=== PATIENT | male | born 2000 | race Caucasian/White ===

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

== ENCOUNTER 2020-01-03 08:55 | Day surgery (SDC) | payer OTHER ==
[2020-01-03 10:01] VITALS: RESP 16; TEMP 98.4
--- NOTE | 2020-01-03 11:19 | P.OP ---
Date of Procedure: 01/03/20 Preoperative Diagnosis: proteinuria Procedure(s) Performed: CT guided left renal parenchymal biopsy Anesthesia: local Surgeon: Judith Valenzuela Estimated Blood Loss (ml): 7 Pathology: other (4 18G cores) Condition: stable Disposition: observation (will observe for 4 hrs prior to discharge)
[2020-01-03 15:12] VITALS: BP 113/55; PULSE 85
--- NOTE | 2020-01-03 15:15 | CT ---
EXAMINATION TYPE: CT biopsy renal LT DATE OF EXAM: 01/03/2020 HISTORY: Proteinuria COMPARISON: None SAFE DEPOSIT ATTENDANT: Dr. Judith Valenzuela PROCEDURE: The procedure was discussed with the patient. The risks, complications, benefits, and alternatives we re discussed and any questions were answered. Informed consent was obtained. The patient was placed p hoda. Preliminary CT imaging demonstrated grossly symmetric kidneys, and a tiny hyperdense focus of the lef t interpolar kidney which may represent punctate hemorrhagic/proteinaceous cyst (3:11). The skin over lying a suitable path to the left lower pole kidney was localized using CT and the overlying skin was prepped and draped utilizing maximal barrier technique. Lidocaine used for local anesthesia. A small skin penny was made with a scalpel. Using CT guidance, access was gained to the kidney parenchyma wit h a 17-gauge introducer needle and 18-gauge coaxial core biopsy needle. Core specimen(s) submitted fo r histopathology. 4 pass(es) performed in all. All needles were removed and sterile bandage was appli ed. Postprocedure CT imaging demonstrated small expected perinephric hemorrhage adjacent to the lower adis e with internal foci of gas. Patient tolerated procedure well with no immediate complications. Patien t will be observed for 4 hours prior to discharge. IMPRESSION: SUCCESSFUL CT GUIDED LEFT RENAL PARENCHYMAL 18G CORE BIOPSY. PATHOLOGY PENDING.
== END 2020-01-03 14:45 | disposition home or self-care (01) ==
LOC: RADPROMAIN 08:55
PROVIDERS: ATTEND Internal Medicine
DX: N04.3 Nephrotic syndrome with diffuse mesangial proliferative glomerulonephritis (principal); R80.9 Proteinuria, unspecified; Z83.3 Family history of diabetes mellitus
CPT/HCPCS: 77012; 86850; 86900; 86901

== ENCOUNTER 2020-11-01 15:26 | Emergency (ER) | payer OTHER ==
[2020-11-01] MEDS ORDERED: SODIUM CHLORIDE 0.9% 1,000 ML IV STA (15:48)
[2020-11-01 16:28] LABS: Amorphous Sediment,Urine Rare /hpf; Appearance,Urine Cloudy (Clear); Basophils # (A) 0.1 k/uL (0-0.2); Basophils % (A) 1 %; Bilirubin,Urine Negative (Negative); Blood,Urine Negative (Negative); Color,Urine Yellow; Eosinophils # (A) 0.3 k/uL (0-0.7); Eosinophils % (A) 5 %; Glucose,Urine (UA) Negative (Negative); HGB 15.7 gm/dL (13.0-17.5); Ketones,Urine Negative (Negative); Leukocyte Esterase,Urine Negative (Negative); Lymphocytes # (A) 2.8 k/uL (1.0-4.8); Lymphocytes % (A) 50 %; MCH 30.3 pg (25.0-35.0); MCHC 34.1 g/dL (31.0-37.0); MCV 88.8 fL (80.0-100.0); Mean Platelet Volume 9.2; Monocytes # (A) 0.3 k/uL (0-1.0); Monocytes % (A) 4 %; Mucus,Urine Rare /hpf; Neutrophils # (A) 2.2 k/uL (1.3-7.7); Neutrophils % (A) 38 %; Nitrite,Urine Negative (Negative); PH, Urine 7.5 (5.0-8.0); Platelet Count 192 k/uL (150-450); Protein,Urine Trace (Negative); RBC 5.19 m/uL (4.30-5.90); RBC,Urine <1 /hpf (0-5); RDW 13.3 % (11.5-15.5); WBC 5.8 k/uL (4.0-11.0)
[2020-11-01 16:33] LABS: INR 1.1 (<1.2); Partial Thromboplastin Time 26.5 sec (22.0-30.0); Prothrombin Time 11.5 sec (9.0-12.0)
[2020-11-01 16:44] LABS: ALT 26 U/L (4-49); AST 96 U/L (17-59); African American GFR (CKD) >90 (>60 ml/min/1.73 sqM); Albumin 4.8 g/dL (3.5-5.0); Alkaline Phosphatase 55 U/L (38-126); Anion Gap 10 mmol/L; Blood Urea Nitrogen 10 mg/dL (9-20); Calcium 10.1 mg/dL (8.4-10.2); Carbon Dioxide 26 mmol/L (22-30); Chloride 105 mmol/L (98-107); Glucose 90 mg/dL (74-99); Magnesium 1.9 mg/dL (1.6-2.3); Non-African American GFR(CKD) >90 (>60 ml/min/1.73 sqM); Potassium 4.2 mmol/L (3.5-5.1); Sodium 141 mmol/L (137-145); Total Bilirubin 0.5 mg/dL (0.2-1.3); Total Protein 7.1 g/dL (6.3-8.2)
--- NOTE | 2020-11-01 16:49 | XR ---
EXAMINATION TYPE: XR chest 2V DATE OF EXAM: 11/01/2020 COMPARISON: 12/11/2019 INDICATION: Chest pain TECHNIQUE: Frontal and lateral views of the chest are obtained. FINDINGS: The heart size is normal. The pulmonary vasculature is normal. Is hyperinflation. Increased retrosternal airspace is present. There is flattening of the diaphragms. Findings can be compatible with COPD. Mild scoliosis or side bending towards the left is present. T his can be positional. IMPRESSION: 1. Emphysematous changes.
--- NOTE | 2020-11-01 17:18 | ED ---
Recheck HPI - General Chief Complaint: Recheck/Abnormal Lab/Rx Stated Complaint: hypotensive Time Seen by Provider: 11/01/20 15:37 Source: patient Mode of arrival: ambulatory Limitations: no limitations - History of Present Illness Initial Comments: 20-year-old male presents to the emergency department with a chief complaint of hypotension. 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 States he was initially started on lisinopril but did not take the medication until 4-5 months ago. States then he was switched recently to losartan which he takes at 8 PM daily. States over the last 4 days he has been experiencing episodes of hypotension with a systolic blood pressure in the 80s. States it can happen at different times throughout the day and the level of activity came very. He reports feeling near syncopal during those times but never actually experienced a syncopal episode. States he spoke to his claim agent, Dr. Martin earlier today who advised him to stop taking the medication and she will see him in the office. He denies any associated dizziness headaches chest with shortness of breath. - Related Data Home Medications Medication Instructions Recorded Confirmed No Known Home Medications 01/03/20 01/03/20 Allergies Allergy/AdvReac Type Severity Reaction Status Date / Time latex Allergy Unknown Verified 11/01/20 15:34 Penicillins Allergy Unknown Verified 11/01/20 15:34 Review of Systems ROS Statement: Those systems with pertinent positive or pertinent negative responses have been documented in the HPI. ROS Other: All systems not noted in ROS Statement are negative. Past Medical History Past Medical History: Renal Disease Additional Past Medical History / Comment(s): proteinuria History of Any Multi-Drug Resistant Organisms: None Reported Past Surgical History: Adenoidectomy, Ear Surgery Additional Past Surgical History / Comment(s): tubes in ears, molar extraction Past Anesthesia/Blood Transfusion Reactions: No Reported Reaction Past Psychological History: No Psychological Hx Reported Smoking Status: Never smoker Past Alcohol Use History: None Reported Past Drug Use History: None Reported - Past Family History Father Family Medical History: Hypertension Mother Family Medical History: No Reported History Sister(s) Family Medical History: No Reported History Brother(s) Family Medical History: No Reported History General Exam Limitations: no limitations General appearance: alert, in no apparent distress Head exam: Present: atraumatic, normocephalic, normal inspection Eye exam: Present: normal appearance, PERRL, EOMI Pupils: Present: normal accommodation ENT exam: Present: normal exam, normal oropharynx, mucous membranes moist Neck exam: Present: normal inspection, full ROM. Absent: tenderness, lymphadenopathy Respiratory exam: Present: normal lung sounds bilaterally. Absent: respiratory distress, wheezes, rales, rhonchi, stridor, chest wall tenderness, accessory muscle use Cardiovascular Exam: Present: regular rate, normal rhythm, normal heart sounds Extremities exam: Present: normal inspection, full ROM, normal capillary refill, other (palpable DP and PT bilaterally. Sensation intact in bilateral upper and lower extremities.). Absent: tenderness, pedal edema, joint swelling, calf tenderness Back exam: Present: normal inspection, full ROM. Absent: tenderness, CVA tender ness (R), CVA tenderness (L) Neurological exam: Present: alert, oriented X3, CN II-XII intact, normal gait Psychiatric exam: Present: normal affect, normal mood Skin exam: Present: warm, dry, intact, normal color Course Vital Signs 11/01/20 11/01/20 15:31 17:00 Temperature 98.0 F Pulse Rate 81 87 Respiratory 18 16 Rate Blood Pressure 128/74 109/64 O2 Sat by Pulse 100 100 Oximetry Medical Decision Making - Medical Decision Making 20-year-old male presents to emergency Department with a chief complaint of hypotension. He is a symptomatic in the emergency department. CBC, CMP, coags and troponin is unremarkable. UA shows trace amounts of protein. Advised the patient not to take the losartan tonight. He will follow up with his claim agent this week. Orthostatics are within normal limits. Vital signs are within normal limits as well. Patient was comfortable going home. Return parameters were discussed with the patient who is understanding and agreeable. Case discussed with physician. - Lab Data Result diagrams: 11/01/20 15:48 11/01/20 15:48 Lab Results 11/01/20 11/01/20 11/01/20 Range/Units 15:48 15:48 15:48 WBC 5.8 (4.0-11.0) k/uL RBC 5.19 (4.30-5.90) m/uL Hgb 15.7 (13.0-17.5) gm/dL Hct 46.0 (39.0-53.0) % MCV 88.8 (80.0-100.0) fL MCH 30.3 (25.0-35.0) pg MCHC 34.1 (31.0-37.0) g/dL RDW 13.3 (11.5-15.5) % Plt Count 192 (150-450) k/uL MPV 9.2 Neutrophils % 38 % Lymphocytes % 50 % Monocytes % 4 % Eosinophils % 5 % Basophils % 1 % Neutrophils # 2.2 (1.3-7.7) k/uL Lymphocytes # 2.8 (1.0-4.8) k/uL Monocytes # 0.3 (0-1.0) k/uL Eosinophils # 0.3 (0-0.7) k/uL Basophils # 0.1 (0-0.2) k/uL PT 11.5 (9.0-12.0) sec INR 1.1 (<1.2) APTT 26.5 (22.0-30.0) sec Sodium (137-145) mmol/L Potassium (3.5-5.1) mmol/L Chloride (98-107) mmol/L Carbon Dioxide (22-30) mmol/L Anion Gap mmol/L BUN (9-20) mg/dL Creatinine (0.66-1.25) mg/dL Est GFR (CKD-EPI)AfAm (>60 ml/min/1.73 sqM) Est GFR (CKD-EPI)NonAf (>60 ml/min/1.73 sqM) Glucose (74-99) mg/dL Calcium (8.4-10.2) mg/dL Magnesium (1.6-2.3) mg/dL Total Bilirubin (0.2-1.3) mg/dL AST (17-59) U/L ALT (4-49) U/L Alkaline Phosphatase (38-126) U/L Troponin I (0.000-0.034) ng/mL Total Protein (6.3-8.2) g/dL Albumin (3.5-5.0) g/dL Urine Color Yellow Urine Appearance Cloudy (Clear) Urine pH 7.5 (5.0-8.0) Ur Specific [place] 1.020 (1.001-1.035) Urine Protein Trace H (Negative) Urine Glucose (UA) Negative (Negative) Urine Ketones Negative (Negative) Urine Blood Negative (Negative) Urine Nitrite Negative (Negative) Urine Bilirubin Negative (Negative) Urine Urobilinogen 2.0 (<2.0) mg/dL Ur Leukocyte Esterase Negative (Negative) Urine RBC <1 (0-5) /hpf Amorphous Sediment Rare H (None) /hpf Urine Mucus Rare H (None) /hpf 11/01/20 11/01/20 Range/Units 15:48 15:48 WBC (4.0-11.0) k/uL RBC (4.30-5.90) m/uL Hgb (13.0-17.5) gm/dL Hct (39.0-53.0) % MCV (80.0-100.0) fL MCH (25.0-35.0) pg MCHC (31.0-37.0) g/dL RDW (11.5-15.5) % Plt Count (150-450) k/uL MPV Neutrophils % % Lymphocytes % % Monocytes % % Eosinophils % % Basophils % % Neutrophils # (1.3-7.7) k/uL Lymphocytes # (1.0-4.8) k/uL Monocytes # (0-1.0) k/uL Eosinophils # (0-0.7) k/uL Basophils # (0-0.2) k/uL PT (9.0-12.0) sec INR (<1.2) APTT (22.0-30.0) sec Sodium 141 (137-145) mmol/L Potassium 4.2 (3.5-5.1) mmol/L Chloride 105 (98-107) mmol/L Carbon Dioxide 26 (22-30) mmol/L Anion Gap 10 mmol/L BUN 10 (9-20) mg/dL Creatinine 0.86 (0.66-1.25) mg/dL Est GFR (CKD-EPI)AfAm >90 (>60 ml/min/1.73 sqM) Est GFR (CKD-EPI)NonAf >90 (>60 ml/min/1.73 sqM) Glucose 90 (74-99) mg/dL Calcium 10.1 (8.4-10.2) mg/dL Magnesium 1.9 (1.6-2.3) mg/dL Total Bilirubin 0.5 (0.2-1.3) mg/dL AST 96 H (17-59) U/L ALT 26 (4-49) U/L Alkaline Phosphatase 55 (38-126) U/L Troponin I <0.012 (0.000-0.034) ng/mL Total Protein 7.1 (6.3-8.2) g/dL Albumin 4.8 (3.5-5.0) g/dL Urine Color Urine Appearance (Clear) Urine pH (5.0-8.0) Ur Specific [place] (1.001-1.035) Urine Protein (Negative) Urine Glucose (UA) (Negative) Urine Ketones (Negative) Urine Blood (Negative) Urine Nitrite (Negative) Urine Bilirubin (Negative) Urine Urobilinogen (<2.0) mg/dL Ur Leukocyte Esterase (Negative) Urine RBC (0-5) /hpf Amorphous Sediment (None) /hpf Urine Mucus (None) /hpf - EKG Data EKG Comments: Sinus rhythm with no acute ischemic changes Ventricular rate 68, WV 124, QRS 90, QTC 392. Disposition Clinical Impression: Lightheadedness, Hypotensive episode Disposition: HOME SELF-CARE Condition: Stable Instructions (If sedation given, give patient instructions): Hypotension (ED), Near Syncope (ED) Additional Instructions: Follow-up with your claim agent. Return to emergency department if symptoms worsen. Is patient prescribed a controlled substance at d/c from ED?: No Referrals: Watson Roberts MD [Primary Care Provider] - 1-2 days Time of Disposition: 17:18
[2020-11-01] MEDS ORDERED: MECLIZINE 12.5 MG TAB PO STA (17:35)
[2020-11-01 18:02] VITALS: BP 117/69; PULSE 80; RESP 17; TEMP 97.2
== END 2020-11-01 17:55 | disposition home or self-care (01) ==
LOC: EC 15:26
DX: I95.9 Hypotension, unspecified (principal)
CPT/HCPCS: 36415; 71046; 80053; 81001; 83735; 84484; 85025; 85610; 85730; 93005; 96361; 99284

== ENCOUNTER → 2020-11-21 | Outpatient (CLI) | payer OTHER | LOC: CPPFTMAIN 07:10 | PROVIDERS: ATTEND Internal Medicine | DX: J44.9 Chronic obstructive pulmonary disease, unspecified (principal); Z91.040 Latex allergy status; Z88.0 Allergy status to penicillin | CPT/HCPCS: 94060; 94726; 94729 ==

== ENCOUNTER 2020-12-22 01:05 | Emergency (ER) | payer OTHER ==
[2020-12-22 01:29] VITALS: BP 120/69; PULSE 73; RESP 19; TEMP 98.1
[2020-12-22] MEDS ORDERED: IPRATROPIUM-ALBUTEROL 3 ML NEB INHALATION STA (02:01)
[2020-12-22] MEDS ORDERED: predniSONE 20 MG TAB PO STA (02:01)
[2020-12-22] MEDS ORDERED: ACETAMINOPHEN TAB 500 MG TAB PO STA (02:01)
[2020-12-22] MEDS ORDERED: IBUPROFEN 800 MG TAB PO STA (02:01)
[2020-12-22] MEDS ORDERED: IBUPROFEN 600 MG STARTER PACK 4 TAB BTL PO STA (02:01)
--- NOTE | 2020-12-22 02:01 | ED ---
Chest Pain HPI - General Chief Complaint: Chest Pain Stated Complaint: rt side chest pain Time Seen by Provider: 12/22/20 01:34 Source: patient, RN notes reviewed, old records reviewed Mode of arrival: ambulatory - History of Present Illness Initial Comments: This is a 20-year-old male DF for evaluation. Patient's recent medical history is remarkable for some kidney disease renal disease as well as left-sided maybe COPD versus asthma. The patient presents today for evaluation regarding chest pain right-sided chest pain worsening takes a deep breath but no shortness of breath. No tenderness to his chest wall and no injury or trauma. Symptoms of lasted throughout the day has been episodic and currently not bad. No fevers cough or congestion MD Complaint: chest pain (Right-sided) -: hour(s) Onset: during rest Pain Location: right chest Pain Radiation: none Severity: moderate Severity scale (1-10): 4 Quality: tightness Consistency: intermittent Improves With: nothing Worsens With: inspiration Context: other (none) Anginal Symptoms: other (nione) Other Symptoms: other (none) Treatments Prior to Arrival: none - Related Data Home Medications Medication Instructions Recorded Confirmed Losartan Potassium [Cozaar] 25 mg PO HS 11/01/20 11/01/20 Previous Rx's Medication Instructions Recorded Meclizine [Antivert] 25 mg PO TID PRN #15 tab 11/01/20 Allergies Allergy/AdvReac Type Severity Reaction Status Date / Time latex Allergy Unknown Verified 12/22/20 01:29 Penicillins Allergy Unknown Verified 12/22/20 01:29 Review of Systems ROS Statement: Those systems with pertinent positive or pertinent negative responses have been documented in the HPI. ROS Other: All systems not noted in ROS Statement are negative. Past Medical History Past Medical History: COPD, Renal Disease Additional Past Medical History / Comment(s): proteinuria, vertigo History of Any Multi-Drug Resistant Organisms: None Reported Past Surgical History: Adenoidectomy, Ear Surgery Additional Past Surgical History / Comment(s): tubes in ears, molar extraction Past Anesthesia/Blood Transfusion Reactions: No Reported Reaction Past Psychological History: No Psychological Hx Reported Smoking Status: Never smoker Past Alcohol Use History: None Reported Past Drug Use History: None Reported - Past Family History Father Family Medical History: Hypertension Mother Family Medical History: No Reported History Sister(s) Family Medical History: No Reported History Brother(s) Family Medical History: No Reported History General Exam General appearance: alert, in no apparent distress Head exam: Present: atraumatic, normocephalic, normal inspection Eye exam: Present: normal appearance, PERRL, EOMI. Absent: scleral icterus, conjunctival injection, periorbital swelling ENT exam: Present: normal exam, mucous membranes moist Neck exam: Present: normal inspection. Absent: tenderness, meningismus, lymphadenopathy Respiratory exam: Present: normal lung sounds bilaterally. Absent: respiratory distress, wheezes, rales, rhonchi, stridor Cardiovascular Exam: Present: regular rate, normal rhythm, normal heart sounds. Absent: systolic murmur, diastolic murmur, rubs, gallop, clicks GI/Abdominal exam: Present: soft, normal bowel sounds. Absent: distended, tenderness, guarding, rebound, rigid Extremities exam: Present: normal inspection, full ROM, normal capillary refill. Absent: tenderness, pedal edema, joint swelling, calf tenderness Back exam: Present: normal inspection Neurological exam: Present: alert, oriented X3, CN II-XII intact Psychiatric exam: Present: normal affect, normal mood Skin exam: Present: warm, dry, intact, normal color. Absent: rash Course Vital Signs 12/22/20 01:25 Temperature 98.1 F Pulse Rate 73 Respiratory 19 Rate Blood Pressure 120/69 O2 Sat by Pulse 96 Oximetry - Reevaluation(s) Reevaluation #1: 12/22/20 02:40 Medical record is reviewed Reevaluation #2: 12/22/20 02:40 Patient symptoms are significantly improved here in the ER Reevaluation #3: 12/22/20 02:40 Patient is informed of results and questions answered feels good for discharge Chest Pain MDM - MDM 20 male to the emergency department today for right-sided chest pain the symptoms are resolved here in the ER chest x-ray is negative patient feels comfortable with discharge home Disposition Clinical Impression: Chest pain Disposition: HOME SELF-CARE Condition: Good Instructions (If sedation given, give patient instructions): Chest Pain (ED), Costochondritis (ED) Is patient prescribed a controlled substance at d/c from ED?: No Referrals: Watson Roberts MD [Primary Care Provider] - 1-2 days
--- NOTE | 2020-12-22 02:01 | XR ---
EXAMINATION TYPE: XR chest 2V DATE OF EXAM: 12/22/2020 COMPARISON: 11/01/2020 HISTORY: Dizziness TECHNIQUE: 2 views FINDINGS: Heart and mediastinum are normal. Lungs are clear. Diaphragm is normal. Bony thorax appears intact. There is slight thoracic dextroscoliosis. IMPRESSION: No active cardiopulmonary disease. Normal heart.
== END 2020-12-22 02:25 | disposition home or self-care (01) ==
LOC: EC 01:05
DX: R07.1 Chest pain on breathing (principal); J44.9 Chronic obstructive pulmonary disease, unspecified; Z91.040 Latex allergy status; Z88.0 Allergy status to penicillin; Z90.89 Acquired absence of other organs
CPT/HCPCS: 99284; 71046; J7512

== ENCOUNTER 2021-06-16 00:05 | Emergency (ER) | payer OTHER ==
[2021-06-16 00:11] VITALS: TEMP 98.9
--- NOTE | 2021-06-16 01:00 | ED ---
General Adult HPI - General Chief complaint: Nausea/Vomiting/Diarrhea Stated complaint: Vomiting Time Seen by Provider: 06/16/21 00:50 Source: patient, family, RN notes reviewed, old records reviewed Mode of arrival: ambulatory Limitations: no limitations - History of Present Illness Initial comments: Well-appearing 21-year-old male presents to the emergency room with 1 day of generalized abdominal pain, nausea, vomiting, and chills. He denies any fevers. No previous abdominal surgeries. Patient states that he has not been able to eat or drink anything all day. He states yesterday he was fine. -: days(s) (1) Location: abdomen Severity scale (1-10): 7 Quality: aching Consistency: constant Improves with: none Worsens with: other (palpation) Associated Symptoms: fever/chills, loss of appetite, malaise, nausea/vomiting - Related Data Home Medications Medication Instructions Recorded Confirmed Losartan Potassium [Cozaar] 25 mg PO HS 11/01/20 11/01/20 Previous Rx's Medication Instructions Recorded Meclizine [Antivert] 25 mg PO TID PRN #15 tab 11/01/20 Allergies Allergy/AdvReac Type Severity Reaction Status Date / Time Penicillins Allergy Unknown Verified 12/22/20 01:29 Review of Systems ROS Statement: Those systems with pertinent positive or pertinent negative responses have been documented in the HPI. ROS Other: All systems not noted in ROS Statement are negative. Past Medical History Past Medical History: Renal Disease Additional Past Medical History / Comment(s): proteinuria, vertigo History of Any Multi-Drug Resistant Organisms: None Reported Past Surgical History: Adenoidectomy, Ear Surgery Additional Past Surgical History / Comment(s): tubes in ears, molar extraction Past Anesthesia/Blood Transfusion Reactions: No Reported Reaction Past Psychological History: Depression Smoking Status: Never smoker Past Alcohol Use History: None Reported Past Drug Use History: None Reported - Past Family History Father Family Medical History: Hypertension Mother Family Medical History: No Reported History Sister(s) Family Medical History: No Reported History Brother(s) Family Medical History: No Reported History General Exam Limitations: no limitations General appearance: alert, in no apparent distress Head exam: Present: atraumatic, normocephalic Eye exam: Present: normal appearance. Absent: scleral icterus, conjunctival injection, periorbital swelling, periorbital tenderness ENT exam: Present: mucous membranes dry, other (Lips are dry and cracked) Neck exam: Present: normal inspection, full ROM. Absent: tenderness, meningismus, lymphadenopathy Respiratory exam: Present: normal lung sounds bilaterally Cardiovascular Exam: Present: tachycardia (Pectus carinatum) GI/Abdominal exam: Present: soft, tenderness (Diffuse tenderness). Absent: distended Extremities exam: Present: normal capillary refill. Absent: pedal edema Back exam: Present: normal inspection, full ROM. Absent: tenderness, CVA tenderness (R), CVA tenderness (L), rash noted Neurological exam: Present: alert, oriented X3 Psychiatric exam: Present: normal affect, normal mood Skin exam: Present: warm, dry, pallor. Absent: cyanosis, diaphoretic Course Vital Signs 06/16/21 06/16/21 00:07 02:01 Temperature 98.9 F Pulse Rate 130 H 99 Respiratory 22 16 Rate Blood Pressure 125/77 110/73 O2 Sat by Pulse 96 100 Oximetry Medical Decision Making - Medical Decision Making 21-year-old male presents with 1 day of abdominal pain with nausea and vomiting and chills. Acute abdominal series shows nonacute abdomen. There is no calcifications of the kidneys. No intestinal obstruction or pneumoperitoneum. CBC and electrolytes are unremarkable. Influenza A, B and coronavirus swabs are negative. Urinalysis shows no evidence of ketones, blood or infection. This appears to be viral in nature. Patient was given 2 L of fluid and Zofran in the emergency room. Patient has had no vomiting in the emergency room. Skin is pink warm and dry. Abdomen is soft at discharge. There is no right lower quadrant pain. Vital signs are stable. He was given a take-home pack of Zofran a nd encouraged to increase his fluid intake. Return to the emergency room with any new or worsening symptoms. Case discussed with Dr. Lehman. - Lab Data Result diagrams: 06/16/21 01:03 06/16/21 01:03 Lab Results 06/16/21 06/16/21 06/16/21 Range/Units 01:03 01:03 01:03 WBC 8.8 (3.8-10.6) k/uL RBC 4.95 (4.30-5.90) m/uL Hgb 15.5 (13.0-17.5) gm/dL Hct 44.7 (39.0-53.0) % MCV 90.5 (80.0-100.0) fL MCH 31.3 (25.0-35.0) pg MCHC 34.6 (31.0-37.0) g/dL RDW 12.8 (11.5-15.5) % Plt Count 141 L (150-450) k/uL MPV 10.1 Neutrophils % 82 % Lymphocytes % 11 % Monocytes % 6 % Eosinophils % 0 % Basophils % 1 % Neutrophils # 7.2 (1.3-7.7) k/uL Lymphocytes # 1.0 (1.0-4.8) k/uL Monocytes # 0.5 (0-1.0) k/uL Eosinophils # 0.0 (0-0.7) k/uL Basophils # 0.1 (0-0.2) k/uL Sodium 138 (137-145) mmol/L Potassium 3.5 (3.5-5.1) mmol/L Chloride 103 (98-107) mmol/L Carbon Dioxide 23 (22-30) mmol/L Anion Gap 12 mmol/L BUN 13 (9-20) mg/dL Creatinine 1.04 (0.66-1.25) mg/dL Est GFR (CKD-EPI)AfAm >90 (>60 ml/min/1.73 sqM) Est GFR (CKD-EPI)NonAf >90 (>60 ml/min/1.73 sqM) Glucose 123 H (74-99) mg/dL Calcium 9.1 (8.4-10.2) mg/dL Total Bilirubin 1.3 (0.2-1.3) mg/dL AST 23 (17-59) U/L ALT 12 (4-49) U/L Alkaline Phosphatase 43 (38-126) U/L Total Protein 6.8 (6.3-8.2) g/dL Albumin 4.4 (3.5-5.0) g/dL Amylase 31 (30-110) U/L Lipase 114 (23-300) U/L Urine Color Urine Appearance (Clear) Urine pH (5.0-8.0) Ur Specific [place] (1.001-1.035) Urine Protein (Negative) Urine Glucose (UA) (Negative) Urine Ketones (Negative) Urine Blood (Negative) Urine Nitrite (Negative) Urine Bilirubin (Negative) Urine Urobilinogen (<2.0) mg/dL Ur Leukocyte Esterase (Negative) Influenza Type A (PCR) Not Detected (Not Detectd) Influenza Type B (PCR) Not Detected (Not Detectd) RSV (PCR) Not Detected (Not Detectd) SARS-CoV-2 (PCR) Not Detected (Not Detectd) 06/16/21 Range/Units 01:42 WBC (3.8-10.6) k/uL RBC (4.30-5.90) m/uL Hgb (13.0-17.5) gm/dL Hct (39.0-53.0) % MCV (80.0-100.0) fL MCH (25.0-35.0) pg MCHC (31.0-37.0) g/dL RDW (11.5-15.5) % Plt Count (150-450) k/uL MPV Neutrophils % % Lymphocytes % % Monocytes % % Eosinophils % % Basophils % % Neutrophils # (1.3-7.7) k/uL Lymphocytes # (1.0-4.8) k/uL Monocytes # (0-1.0) k/uL Eosinophils # (0-0.7) k/uL Basophils # (0-0.2) k/uL Sodium (137-145) mmol/L Potassium (3.5-5.1) mmol/L Chloride (98-107) mmol/L Carbon Dioxide (22-30) mmol/L Anion Gap mmol/L BUN (9-20) mg/dL Creatinine (0.66-1.25) mg/dL Est GFR (CKD-EPI)AfAm (>60 ml/min/1.73 sqM) Est GFR (CKD-EPI)NonAf (>60 ml/min/1.73 sqM) Glucose (74-99) mg/dL Calcium (8.4-10.2) mg/dL Total Bilirubin (0.2-1.3) mg/dL AST (17-59) U/L ALT (4-49) U/L Alkaline Phosphatase (38-126) U/L Total Protein (6.3-8.2) g/dL Albumin (3.5-5.0) g/dL Amylase (30-110) U/L Lipase (23-300) U/L Urine Color Yellow Urine Appearance Clear (Clear) Urine pH 5.5 (5.0-8.0) Ur Specific [place] 1.032 (1.001-1.035) Urine Protein Trace H (Negative) Urine Glucose (UA) Negative (Negative) Urine Ketones Negative (Negative) Urine Blood Negative (Negative) Urine Nitrite Negative (Negative) Urine Bilirubin Negative (Negative) Urine Urobilinogen <2.0 (<2.0) mg/dL Ur Leukocyte Esterase Negative (Negative) Influenza Type A (PCR) (Not Detectd) Influenza Type B (PCR) (Not Detectd) RSV (PCR) (Not Detectd) SARS-CoV-2 (PCR) (Not Detectd) Disposition Clinical Impression: Nausea & vomiting, Abdominal pain Disposition: HOME SELF-CARE Instructions (If sedation given, give patient instructions): Acute Nausea and Vomiting (ED), Abdominal Pain (ED) Additional Instructions: Take Zofran as prescribed. Increase your fluid intake. Return to the emergency room with any new or concerning symptoms including increased pain, fevers or inability to keep any fluids down. Follow-up with the primary care doctor next week Is patient prescribed a controlled substance at d/c from ED?: No Referrals: Watson Roberts MD [Primary Care Provider] - 1-2 days Time of Disposition: 03:31
[2021-06-16] MEDS: SODIUM CHLORIDE 0.9% 1,000 ML IV STA (01:04)
[2021-06-16] MEDS: ONDANSETRON 4 MG/2 ML VIAL IVP STA (01:07)
[2021-06-16 01:46] LABS: Basophils # (A) 0.1 k/uL (0-0.2); Basophils % (A) 1 %; Eosinophils % (A) 0 %; HCT 44.7 % (39.0-53.0); HGB 15.5 gm/dL (13.0-17.5); Lymphocytes % (A) 11 %; MCH 31.3 pg (25.0-35.0); MCHC 34.6 g/dL (31.0-37.0); MCV 90.5 fL (80.0-100.0); Mean Platelet Volume 10.1; Monocytes # (A) 0.5 k/uL (0-1.0); Monocytes % (A) 6 %; Neutrophils # (A) 7.2 k/uL (1.3-7.7); Neutrophils % (A) 82 %; Platelet Count 141 k/uL (150-450); RBC 4.95 m/uL (4.30-5.90); RDW 12.8 % (11.5-15.5); WBC 8.8 k/uL (3.8-10.6)
--- NOTE | 2021-06-16 01:47 | XR ---
EXAMINATION TYPE: XR abdomen acute w cxr DATE OF EXAM: 06/16/2021 COMPARISON: NONE HISTORY: Dull pain TECHNIQUE: 4 views FINDINGS: Heart and mediastinum are normal. Lungs are clear. Diaphragm is normal. Bony thorax is inta ct. Bowel gas pattern is normal. There is no sign of intestinal obstruction or pneumoperitoneum. Fecal pa ttern is normal. There is no sign of a mass. There are no calcifications over the kidneys. IMPRESSION: Nonacute abdomen.
[2021-06-16 01:57] LABS: ALT 12 U/L (4-49); AST 23 U/L (17-59); African American GFR (CKD) >90 (>60 ml/min/1.73 sqM); Albumin 4.4 g/dL (3.5-5.0); Alkaline Phosphatase 43 U/L (38-126); Amylase 31 U/L (30-110); Anion Gap 12 mmol/L; Blood Urea Nitrogen 13 mg/dL (9-20); Calcium 9.1 mg/dL (8.4-10.2); Carbon Dioxide 23 mmol/L (22-30); Chloride 103 mmol/L (98-107); Glucose 123 mg/dL (74-99); Lipase 114 U/L (23-300); Non-African American GFR(CKD) >90 (>60 ml/min/1.73 sqM); Potassium 3.5 mmol/L (3.5-5.1); Sodium 138 mmol/L (137-145); Total Bilirubin 1.3 mg/dL (0.2-1.3); Total Protein 6.8 g/dL (6.3-8.2)
[2021-06-16 02:02] VITALS: BP 110/73; PULSE 99; RESP 16
[2021-06-16] MEDS: SODIUM CHLORIDE 0.9% 1,000 ML IV ONE (02:25)
[2021-06-16 02:28] LABS: Influenza A Not Detected (Not Detectd); Influenza B Not Detected (Not Detectd)
[2021-06-16 03:09] LABS: Appearance,Urine Clear (Clear); Bilirubin,Urine Negative (Negative); Blood,Urine Negative (Negative); Color,Urine Yellow; Glucose,Urine (UA) Negative (Negative); Ketones,Urine Negative (Negative); Leukocyte Esterase,Urine Negative (Negative); Nitrite,Urine Negative (Negative); PH, Urine 5.5 (5.0-8.0); Protein,Urine Trace (Negative); Specific Gravity,Urine 1.032 (1.001-1.035); Urobilinogen,Urine <2.0 mg/dL (<2.0)
[2021-06-16] MEDS: ONDANSETRON 4 MG ODT STARTER PACK 2 TAB BTL PO STA (03:36)
== END 2021-06-16 03:44 | disposition home or self-care (01) ==
LOC: EC 00:05
DX: R10.84 Generalized abdominal pain (principal); R11.2 Nausea with vomiting, unspecified; F32.A Depression, unspecified; Z20.822 Contact with and (suspected) exposure to COVID-19
CPT/HCPCS: 36415; 80053; 82150; 83690; 85025; 81003; 87636; 74022; 99284; 96374; 96361 ×2; J2405; S0119

== ENCOUNTER 2021-11-06 23:41 | Emergency (ER) | payer OTHER ==
[2021-11-06 23:54] VITALS: RESP 16
[2021-11-07] MEDS ORDERED: HYDROcodone/APAP 7.5-325MG 1 EACH TAB PO ONE (00:11)
--- NOTE | 2021-11-07 00:35 | ED ---
Upper Extremity HPI - General Chief Complaint: Extremity Injury, Upper Stated Complaint: lt shoulder pain Time Seen by Provider: 11/07/21 00:00 Source: patient Mode of arrival: ambulatory Limitations: no limitations - History of Present Illness Initial Comments: Patient is a 21-year-old male presenting with chief complaint of left shoulder pain. Patient states that the pain started 2 days ago after a workout. Patient states that immediately following the workout he felt fine, when he woke up from sleeping he began experiencing the pain, the pain has been increasing, patient is unable to lift arm above his head. He denies any numbness, tingling, weakness. - Related Data Home Medications Medication Instructions Recorded Confirmed Losartan Potassium [Cozaar] 25 mg PO HS 11/01/20 11/01/20 Previous Rx's Medication Instructions Recorded Meclizine [Antivert] 25 mg PO TID PRN #15 tab 11/01/20 Allergies Allergy/AdvReac Type Severity Reaction Status Date / Time Penicillins Allergy Unknown Verified 12/22/20 01:29 Review of Systems ROS Statement: Those systems with pertinent positive or pertinent negative responses have been documented in the HPI. ROS Other: All systems not noted in ROS Statement are negative. Past Medical History Past Medical History: Renal Disease Additional Past Medical History / Comment(s): proteinuria, vertigo History of Any Multi-Drug Resistant Organisms: None Reported Past Surgical History: Adenoidectomy, Ear Surgery Additional Past Surgical History / Comment(s): tubes in ears, molar extraction Past Anesthesia/Blood Transfusion Reactions: No Reported Reaction Past Psychological History: Depression Smoking Status: Never smoker Past Alcohol Use History: Occasional Past Drug Use History: None Reported - Past Family History Father Family Medical History: Hypertension Mother Family Medical History: No Reported History Sister(s) Family Medical History: No Reported History Brother(s) Family Medical History: No Reported History General Exam Limitations: no limitations General appearance: alert, in no apparent distress Head exam: Present: atraumatic, normocephalic, normal inspection Eye exam: Present: normal appearance, EOMI. Absent: scleral icterus, periorbital swelling Neck exam: Present: normal inspection Left Shoulder Exam: Present: tenderness. Absent: full ROM, swelling, tenderness over AC joint Elbow exam: Present: normal inspection, full ROM. Absent: tenderness Forearm Wrist exam: Present: normal inspection, full ROM. Absent: tenderness Hand Wrist exam: Present: normal inspection, full ROM. Absent: tenderness Neurosensory exam: Present: other (Neurovascularly intact) Neurological exam: Present: alert, oriented X3, CN II-XII intact Psychiatric exam: Present: normal affect, normal mood Skin exam: Present: warm, dry, intact, normal color. Absent: rash Course Vital Signs 11/06/21 11/07/21 23:51 01:40 Temperature 97.8 F 98.0 F Pulse Rate 75 72 Respiratory 16 16 Rate Blood Pressure 121/77 118/73 O2 Sat by Pulse 98 100 Oximetry Medical Decision Making - Medical Decision Making Patient is a 21-year-old male presenting with chief complaint of left shoulder pain. Pain started after his workout 2 days ago. On examination patient has limited range of motion, he is unable to lift the arm above his head. Patient states that the majority of pain is located in the posterior region of the shoulder, there is tenderness to palpation. X-ray shows no acute fracture or dislocation. Patient is educated on these findings, this is likely a soft tissue injury involving the rotator cuff. Patient is educated on supportive treatment with Tylenol, rest, ice, utilizing arm sling. Follow-up with PCP and orthopedics. Report back to ER with any new or worsening symptoms. Discussed return parameters answered all questions. Patient conveyed verbal understanding and agreed to the plan. My attending is Dr. Lehman. Disposition Clinical Impression: Strain of shoulder, Rotator cuff injury Disposition: HOME SELF-CARE Condition: Good Instructions (If sedation given, give patient instructions): Rotator Cuff Injury (ED), Shoulder Pain (ED), Rotator Cuff Injury Exercises (DC) Additional Instructions: Follow-up with PCP and orthopedics. Report back to ER with any new or worsening symptoms. Take Tylenol as needed for pain control. Rest, ice for symptomatic management. Is patient prescribed a controlled substance at d/c from ED?: Yes When asked, does pt state using other controlled substances?: No If prescribed controlled substance>3 days was MAPS reviewed?: Prescribed <3 Days If opioid is for acute pain is fill amount 7 days or less?: Yes Referrals: Watson Roberts MD [Primary Care Provider] - 1-2 days Mary Alice Enriquez NPC [Nurse Practitioner] - 1-2 days Time of Disposition: 01:23
--- NOTE | 2021-11-07 00:57 | XR ---
EXAMINATION TYPE: XR shoulder complete LT DATE OF EXAM: 11/07/2021 COMPARISON: NONE HISTORY: Pain TECHNIQUE: 3 views FINDINGS: There is no sign of fracture nor dislocation. Glenohumeral joint is intact. There are no pa thologic calcifications. IMPRESSION: Negative left shoulder exam.
[2021-11-07] MEDS ORDERED: ACET/COD 300 MG/30 MG STARTER PACK 6 TAB BTL PO STA (01:22)
[2021-11-07 01:42] VITALS: BP 118/73; PULSE 72; TEMP 98
== END 2021-11-07 01:42 | disposition home or self-care (01) ==
LOC: EC 23:41
DX: S46.011A Strain of muscle(s) and tendon(s) of the rotator cuff of right shoulder, initial encounter (principal); Z88.0 Allergy status to penicillin; W19.XXXA Unspecified fall, initial encounter
CPT/HCPCS: 99283

== ENCOUNTER 2021-11-10 09:38 | Emergency (ER) | payer OTHER ==
[2021-11-10 10:01] VITALS: BP 136/74; PULSE 71; RESP 18; TEMP 97.9
[2021-11-10] MEDS ORDERED: HYDROcodone/APAP 5-325MG 1 EACH TAB PO STA (10:27)
--- NOTE | 2021-11-10 10:29 | ED ---
Upper Extremity HPI - General Chief Complaint: Extremity Injury, Upper Stated Complaint: Shoulder pain Time Seen by Provider: 11/10/21 10:05 Source: patient, RN notes reviewed Mode of arrival: ambulatory Limitations: no limitations - History of Present Illness Initial Comments: This a 21-year-old male presents emergency Department chief complaint right shoulder pain. Patient was primarily evaluated for the shoulder pain in the ER again by PCP is scheduled see orthopedics. Patient has been in a sling for his left shoulder is been having worsening pain. He states he has not remove the sling has not been doing any range of motion exercises. Patient denies any paresthesias no new trauma. - Related Data Home Medications Medication Instructions Recorded Confirmed Losartan Potassium [Cozaar] 25 mg PO HS 11/01/20 11/01/20 Previous Rx's Medication Instructions Recorded Meclizine [Antivert] 25 mg PO TID PRN #15 tab 11/01/20 HYDROcodone/APAP 5-325MG [[place] 5] 1 each PO Q6HR PRN #12 tab 11/10/21 Allergies Allergy/AdvReac Type Severity Reaction Status Date / Time Penicillins Allergy Unknown Verified 11/10/21 10:00 Review of Systems ROS Statement: Those systems with pertinent positive or pertinent negative responses have been documented in the HPI. ROS Other: All systems not noted in ROS Statement are negative. Past Medical History Past Medical History: Renal Disease Additional Past Medical History / Comment(s): proteinuria, vertigo History of Any Multi-Drug Resistant Organisms: None Reported Past Surgical History: Adenoidectomy, Ear Surgery Additional Past Surgical History / Comment(s): tubes in ears, molar extraction Past Anesthesia/Blood Transfusion Reactions: No Reported Reaction Past Psychological History: Depression Smoking Status: Never smoker Past Alcohol Use History: Occasional Past Drug Use History: None Reported - Past Family History Father Family Medical History: Hypertension Mother Family Medical History: No Reported History Sister(s) Family Medical History: No Reported History Brother(s) Family Medical History: No Reported History General Exam Limitations: no limitations General appearance: alert, in no apparent distress Head exam: Present: atraumatic, normocephalic, normal inspection Neck exam: Present: normal inspection, full ROM. Absent: tenderness, meningismus, lymphadenopathy Respiratory exam: Present: normal lung sounds bilaterally. Absent: respiratory distress, wheezes, rales, rhonchi, stridor Cardiovascular Exam: Present: regular rate, normal rhythm, normal heart sounds. Absent: systolic murmur, diastolic murmur, rubs, gallop, clicks Extremities exam: Present: other (Lungs range of motion the left shoulder, tenderness over the deltoid, trapezius region, there is obvious muscle spasms, hand, wrist neurovascular intact) Course Vital Signs 11/10/21 09:55 Temperature 97.9 F Pulse Rate 71 Respiratory 18 Rate Blood Pressure 136/74 O2 Sat by Pulse 100 Oximetry Medical Decision Making - Medical Decision Making Patient had prior x-rays imaging has been diagnosed with left shoulder strain, rotator cuff injury. Patient's been having worsening symptoms as he has been in the sling without any range of motion exercises several worsening muscle spasms. Patient is on Robaxin by PCP, steroids by PCP patient is scheduled for orthopedics. Patient discharged in stable condition return parameters discussed. We discussed range of motion exercises. Disposition Clinical Impression: Left shoulder pain Disposition: HOME SELF-CARE Condition: Stable Instructions (If sedation given, give patient instructions): Shoulder Pain (ED) Additional Instructions: Please do shoulder range of motion exercises as directed. Please return to the Emergency Department if symptoms worsen or any other concerns. Prescriptions: HYDROcodone/APAP 5-325MG [[place] 5] 1 each PO Q6HR PRN #12 tab PRN Reason: Pain Is patient prescribed a controlled substance at d/c from ED?: Yes When asked, does pt state using other controlled substances?: No If prescribed controlled substance>3 days was MAPS reviewed?: Prescribed <3 Days If opioid is for acute pain is fill amount 7 days or less?: Yes If Rx opioid, was Start Talking consent form obtained?: Yes Referrals: Watson Roberts MD [Primary Care Provider] - 1-2 days Time of Disposition: 10:28
== END 2021-11-10 10:35 | disposition home or self-care (01) ==
LOC: EC 09:38
DX: M25.512 Pain in left shoulder (principal); Z88.0 Allergy status to penicillin
CPT/HCPCS: 99283

== ENCOUNTER 2022-03-12 00:07 | Emergency (ER) | payer OTHER ==
[2022-03-12] MEDS ORDERED: SODIUM CHLORIDE 0.9% 1,000 ML IV STA (00:17)
[2022-03-12] MEDS ORDERED: ACETAMINOPHEN TAB 500 MG TAB PO STA (00:17)
[2022-03-12] MEDS ORDERED: IBUPROFEN ORAL SUSP 100 MG/5 ML CUP PO STA (00:17)
[2022-03-12 00:22] VITALS: RESP 16; TEMP 98.2
--- NOTE | 2022-03-12 00:22 | ED ---
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 Patient has been ill for about 2 weeks. Patient states she's been on antibiotics. Patient states his symptomology is worsening. Mainly nasal congestion and now a worsening cough despite treatment. Patient chest discomfort which radiates into his right chest, especially when he coughs. Cough is nonproductive. Patient has been taking [id number] codeine based cough syrup with no relief Subjective fever., no changes in vision or hearing, no sore throat or difficulty with speech, no neck pain, no abdominal pain, no nausea or vomiting, no changes in urination or bowel movements, no numbness or tingling, no extremity pain, no skin rashes or lesions. Past medical, surgical, social, and family history reviewed. MD Complaint: cough, rhinorrhea, nasal congestion - Related Data Home Medications Medication Instructions Recorded Confirmed Losartan Potassium [Cozaar] 25 mg PO HS 11/01/20 11/01/20 Previous Rx's Medication Instructions Recorded Meclizine [Antivert] 25 mg PO TID PRN #15 tab 11/01/20 HYDROcodone/APAP 5-325MG [[place] 5] 1 each PO Q6HR PRN #12 tab 11/10/21 Benzonatate [Tessalon Perles] 200 mg PO TID PRN #30 capsule 03/12/22 methylPREDNISolone Dose Pack 4 mg PO DIRECTED #21 tab 03/12/22 [Medrol Dose Pack] Allergies Allergy/AdvReac Type Severity Reaction Status Date / Time Penicillins Allergy Unknown Verified 03/12/22 00:10 Review of Systems ROS Statement: Those systems with pertinent positive or pertinent negative responses have been documented in the HPI. ROS Other: All systems not noted in ROS Statement are negative. Past Medical History Past Medical History: Renal Disease Additional Past Medical History / Comment(s): proteinuria, vertigo, pectus excavatum History of Any Multi-Drug Resistant Organisms: None Reported Past Surgical History: Adenoidectomy, Ear Surgery Additional Past Surgical History / Comment(s): tubes in ears, molar extraction Past Anesthesia/Blood Transfusion Reactions: No Reported Reaction Past Psychological History: Depression Smoking Status: Never smoker Past Alcohol Use History: Occasional Past Drug Use History: None Reported - Past Family History Father Family Medical History: Hypertension Mother Family Medical History: No Reported History Sister(s) Family Medical History: No Reported History Brother(s) Family Medical History: No Reported History General Exam - General Exam Comments Initial Comments: Patient noted be quite tachycardic. Patient in no distress otherwise. Pectus excavatum on physical examination Limitations: no limitations General appearance: alert, in no apparent distress Head exam: Present: atraumatic, normocephalic, normal inspection Eye exam: Present: normal appearance, PERRL, EOMI. Absent: scleral icterus, conjunctival injection, periorbital swelling ENT exam: Present: normal exam, mucous membranes moist Neck exam: Present: normal inspection, full ROM. Absent: tenderness, meningismus, lymphadenopathy Respiratory exam: Present: normal lung sounds bilaterally, chest wall tenderness. Absent: respiratory distress, wheezes, rales, rhonchi, stridor, accessory muscle use Cardiovascular Exam: Present: normal rhythm, tachycardia, normal heart sounds. Absent: systolic murmur, diastolic murmur, rubs, gallop, clicks GI/Abdominal exam: Present: soft, normal bowel sounds. Absent: distended, tenderness, guarding, rebound, rigid Extremities exam: Present: normal inspection, full ROM, normal capillary refill. Absent: tenderness, pedal edema, joint swelling, calf tenderness Back exam: Present: normal inspection Neurological exam: Present: alert, oriented X3, CN II-XII intact Psychiatric exam: Present: normal affect, normal mood Skin exam: Present: warm, dry, intact, normal color. Absent: rash Course Vital Signs 03/12/22 03/12/22 00:10 00:22 Temperature 98 F 98.2 F Pulse Rate 124 H 118 H Respiratory 18 16 Rate Blood Pressure 147/74 138/97 O2 Sat by Pulse 100 99 Oximetry - Reevaluation(s) Reevaluation #1: 03/12/22 02:39 Medical record is reviewed Symptoms are improved here in the emergency department,, patient continues to have a dry cough. Patient is informed of results and questions answered Patient in no distress Medical Decision Making - Medical Decision Making Given the patient's length of symptomology and tachycardia. I was concerned about the possibility of myocarditis. However patient has a negative troponin, negative CK-MB, sedimentation rate is 2. I think this is unlikely, however mild disease may be present. We'll likely the patient has caught a second virus. Patient's COVID-19 testing is negative. Patient's influenza swab was inadvertently ran as a streptococcal test. Heart regular nimbly this will change treatment. Patient is already on doxycycline as prescribed by his regular physician. I told him to follow with her regular physicians instructions based on this. I did have some tests that were pending such as mycoplasma and Legionella. Patient works in a alf, patient has no x-ray findings consistent with tuberculosis. There is no hemoptysis. We will have the patient follow up closely with his regular physician. I did give the patient follow-up information for cardiology if the tachycardia persists. Patient voiced understanding of all instructions. Patient told to take acetaminophen. I did prescribe Solu-Medrol and Tessalon Perles. The case was discussed in detail with ED attending physician. Presentation, findings, treatment plan discussed in detail. [address] Lehman - Lab Data Result diagrams: 03/12/22 00:36 03/12/22 00:41 Lab Results 03/12/22 03/12/22 03/12/22 Range/Units 00:36 00:41 00:41 WBC 11.3 H (3.8-10.6) k/uL RBC 5.44 (4.30-5.90) m/uL Hgb 16.7 (13.0-17.5) gm/dL Hct 48.3 (39.0-53.0) % MCV 88.7 (80.0-100.0) fL MCH 30.7 (25.0-35.0) pg MCHC 34.6 (31.0-37.0) g/dL RDW 12.6 (11.5-15.5) % Plt Count 211 (150-450) k/uL MPV 9.4 Neutrophils % 60 % Lymphocytes % 27 % Monocytes % 6 % Eosinophils % 5 % Basophils % 1 % Neutrophils # 6.8 (1.3-7.7) k/uL Lymphocytes # 3.1 (1.0-4.8) k/uL Monocytes # 0.6 (0-1.0) k/uL Eosinophils # 0.6 (0-0.7) k/uL Basophils # 0.1 (0-0.2) k/uL ESR 2 (0-15) mm/hr D-Dimer <0.17 (<0.60) mg/L FEU Sodium 142 (137-145) mmol/L Potassium 3.8 (3.5-5.1) mmol/L Chloride 103 (98-107) mmol/L Carbon Dioxide 27 (22-30) mmol/L Anion Gap 12 mmol/L BUN 13 (9-20) mg/dL Creatinine 0.90 (0.66-1.25) mg/dL Est GFR (CKD-EPI)AfAm >90 (>60 ml/min/1.73 sqM) Est GFR (CKD-EPI)NonAf >90 (>60 ml/min/1.73 sqM) Glucose 92 (74-99) mg/dL Plasma Lactic Acid Izaiah (0.7-2.0) mmol/L Calcium 9.7 (8.4-10.2) mg/dL Magnesium 2.1 (1.6-2.3) mg/dL Total Bilirubin 0.8 (0.2-1.3) mg/dL AST 27 (17-59) U/L ALT 15 (4-49) U/L Alkaline Phosphatase 65 (38-126) U/L CK-MB (CK-2) (0.0-2.4) ng/mL Troponin I (0.000-0.034) ng/mL C-Reactive Protein <0.5 (<1.0) mg/dL Total Protein 7.6 (6.3-8.2) g/dL Albumin 5.1 H (3.5-5.0) g/dL Coronavirus (PCR) (Not Detectd) 03/12/22 03/12/22 03/12/22 Range/Units 00:41 00:41 00:49 WBC (3.8-10.6) k/uL RBC (4.30-5.90) m/uL Hgb (13.0-17.5) gm/dL Hct (39.0-53.0) % MCV (80.0-100.0) fL MCH (25.0-35.0) pg MCHC (31.0-37.0) g/dL RDW (11.5-15.5) % Plt Count (150-450) k/uL MPV Neutrophils % % Lymphocytes % % Monocytes % % Eosinophils % % Basophils % % Neutrophils # (1.3-7.7) k/uL Lymphocytes # (1.0-4.8) k/uL Monocytes # (0-1.0) k/uL Eosinophils # (0-0.7) k/uL Basophils # (0-0.2) k/uL ESR (0-15) mm/hr D-Dimer (<0.60) mg/L FEU Sodium (137-145) mmol/L Potassium (3.5-5.1) mmol/L Chloride (98-107) mmol/L Carbon Dioxide (22-30) mmol/L Anion Gap mmol/L BUN (9-20) mg/dL Creatinine (0.66-1.25) mg/dL Est GFR (CKD-EPI)AfAm (>60 ml/min/1.73 sqM) Est GFR (CKD-EPI)NonAf (>60 ml/min/1.73 sqM) Glucose (74-99) mg/dL Plasma Lactic Acid Izaiah 1.9 (0.7-2.0) mmol/L Calcium (8.4-10.2) mg/dL Magnesium (1.6-2.3) mg/dL Total Bilirubin (0.2-1.3) mg/dL AST (17-59) U/L ALT (4-49) U/L Alkaline Phosphatase (38-126) U/L CK-MB (CK-2) 0.7 (0.0-2.4) ng/mL Troponin I <0.012 (0.000-0.034) ng/mL C-Reactive Protein (<1.0) mg/dL Total Protein (6.3-8.2) g/dL Albumin (3.5-5.0) g/dL Coronavirus (PCR) Not Detected (Not Detectd) - EKG Data EKG Comments: EKG done at 0053 and read by the ED attending physician reveals sinus tachycardia with a rate of 109, normal axis, no acute ST or T-wave changes. Normal QRS morphology. Normal intervals. - Radiology Data Radiology results: report reviewed (Two-view chest x-ray interpreted by me reveals no evidence of acute pathology. No infiltrate. No cardiomegaly. No effusion. No free air. No osseous lesion. No pneumothorax.), image reviewed Disposition Clinical Impression: Acute bronchitis, Sinus tachycardia, Chest wall pain Disposition: HOME SELF-CARE Condition: Good Instructions (If sedation given, give patient instructions): Acute Bronchitis (ED), Chest Wall Pain (ED), Tachycardia (ED) Additional Instructions: Use Tylenol as directed. He can take the cough medicine if needed. Medrol Dosepak. Follow-up with your regular physician as directed. Return to the ER immediately if any symptoms worsen, new symptoms arise, or any other problems develop. Other testing is pending. Your regular physician can obtain the results. Follow-up with your regular physician. Cardiology if needed. Prescriptions: methylPREDNISolone Dose Pack [Medrol Dose Pack] 4 mg PO DIRECTED #21 tab Benzonatate [Tessalon Perles] 200 mg PO TID PRN #30 capsule PRN Reason: Cough Is patient prescribed a controlled substance at d/c from ED?: No Referrals: Watson Roberts MD [Primary Care Provider] - 1-2 days Real Rahman DO [STAFF PHYSICIAN] - 1-2 days Time of Disposition: 02:40
--- NOTE | 2022-03-12 00:42 | XR ---
EXAMINATION TYPE: XR chest 2V DATE OF EXAM: 03/12/2022 COMPARISON: NONE HISTORY: Cough TECHNIQUE: 2 views FINDINGS: Heart and mediastinum are normal. Lungs are clear. Diaphragm is normal. Bony thorax is inta ct. IMPRESSION: Normal chest. No change.
[2022-03-12 00:53] LABS: Basophils # (A) 0.1 k/uL (0-0.2); Basophils % (A) 1 %; Eosinophils # (A) 0.6 k/uL (0-0.7); Eosinophils % (A) 5 %; HCT 48.3 % (39.0-53.0); HGB 16.7 gm/dL (13.0-17.5); Lymphocytes # (A) 3.1 k/uL (1.0-4.8); Lymphocytes % (A) 27 %; MCH 30.7 pg (25.0-35.0); MCHC 34.6 g/dL (31.0-37.0); MCV 88.7 fL (80.0-100.0); Mean Platelet Volume 9.4; Monocytes # (A) 0.6 k/uL (0-1.0); Monocytes % (A) 6 %; Neutrophils # (A) 6.8 k/uL (1.3-7.7); Neutrophils % (A) 60 %; Platelet Count 211 k/uL (150-450); RBC 5.44 m/uL (4.30-5.90); RDW 12.6 % (11.5-15.5); WBC 11.3 k/uL (3.8-10.6)
[2022-03-12] MEDS ORDERED: IBUPROFEN 600 MG TAB PO STA (01:00)
[2022-03-12 01:13] LABS: ALT 15 U/L (4-49); AST 27 U/L (17-59); African American GFR (CKD) >90 (>60 ml/min/1.73 sqM); Albumin 5.1 g/dL (3.5-5.0); Alkaline Phosphatase 65 U/L (38-126); Anion Gap 12 mmol/L; Blood Urea Nitrogen 13 mg/dL (9-20); C Reactive Protein <0.5 mg/dL (<1.0); Calcium 9.7 mg/dL (8.4-10.2); Carbon Dioxide 27 mmol/L (22-30); Chloride 103 mmol/L (98-107); Glucose 92 mg/dL (74-99); Magnesium 2.1 mg/dL (1.6-2.3); Non-African American GFR(CKD) >90 (>60 ml/min/1.73 sqM); Potassium 3.8 mmol/L (3.5-5.1); Sodium 142 mmol/L (137-145); Total Bilirubin 0.8 mg/dL (0.2-1.3); Total Protein 7.6 g/dL (6.3-8.2)
[2022-03-12 01:23] LABS: Creatine Kinase MB 0.7 ng/mL (0.0-2.4); Troponin I <0.012 ng/mL (0.000-0.034)
[2022-03-12 01:41] LABS: Erythrocyte Sedimentation Rate 2 mm/hr (0-15)
[2022-03-12] MEDS ORDERED: methylPREDNISolone SOD SUCCI 125 MG/2 ML VIAL IV STA (01:47)
[2022-03-12 02:59] VITALS: BP 132/80; PULSE 91
[2022-03-13 05:12] LABS: Mycoplasma IgG Antibody (EIA) 2.97 INDEX (<=0.90); Mycoplasma IgM Antibody 1.15 INDEX (<=0.90)
== END 2022-03-12 03:00 | disposition home or self-care (01) ==
LOC: EC 00:07
DX: J02.9 Acute pharyngitis, unspecified (principal); F32.A Depression, unspecified; N28.9 Disorder of kidney and ureter, unspecified; R07.89 Other chest pain; Z88.0 Allergy status to penicillin; Z20.822 Contact with and (suspected) exposure to COVID-19
CPT/HCPCS: 99285 ×2; 96374 ×2; 96361 ×2; 96360; 36415; 93005; 85379; 86738 ×2; 80053; 87449; 85652; 82553; 83605; 83735; 84484; 85025; 86140; 87040; 87635; 71046; J2930; 99284

== ENCOUNTER → 2023-08-22 | Outpatient (CLI) | payer BC ==
--- NOTE | 2023-08-23 09:40 | CT ---
EXAMINATION TYPE: CT sinus wo con DATE OF EXAM: 08/22/2023 COMPARISON: None HISTORY: CHRONIC MAXILLARY SINUSITIS CT DLP: 771.4 mGycm CONTRAST: None The paranasal sinuses are examined in the axial plane at 2 mm thick sections. Reconstructed images i n the coronal plane were obtained. There is dental braces scatter artifact There is opacification of the left maxillary sinus. An air-fluid level may be in the superior left ma xillary sinus. Retention cyst is in the right maxillary sinus. There is some opacification in the posterior ethmoid air cells. Retention cyst or within the sphenoid sinuses. The frontal sinuses are clear. Cody a ir cells are present on the left. The septum is evaluated. There is septal deviation to the left. Left-sided septal spur is present.. The ostiomeatal units are patent. IMPRESSION: 1. Air-fluid level within the left maxillary sinus. Correlate for acute left maxillary sinusitis. 2. Multiple large retention cysts throughout the remaining paranasal sinuses discussed above.
== END | disposition home or self-care (01) ==
LOC: RADCTMAIN 17:17
PROVIDERS: ATTEND Otolaryngology
DX: J32.0 Chronic maxillary sinusitis (principal); J34.89 Other specified disorders of nose and nasal sinuses
CPT/HCPCS: 70486

== ENCOUNTER → 2023-08-26 | Outpatient (CLI) | payer BC ==
[2023-08-26 15:00] LABS: Appearance,Urine Clear (Clear); Bilirubin,Urine Negative (Negative); Blood,Urine Negative (Negative); Color,Urine Yellow (Yellow); Ketones,Urine Negative (Negative); Nitrite,Urine Negative (Negative); Specific Gravity,Urine 1.027 (1.001-1.030)
[2023-08-26 15:09] LABS: Bacteria,Urine None Seen (None Seen)
[2023-08-26 15:19] LABS: % Iron Saturation 51.51 (15.00-50.00); ALT 12 U/L (10-49); AST 23 U/L (14-35); Albumin/Globulin Ratio 2.38 Ratio (1.60-3.17); Alkaline Phosphatase 66 U/L (41-126); BUN/Creat Ratio 11.91 Ratio (12.00-20.00); Blood Urea Nitrogen 13.1 mg/dL (9.0-27.0); Calcium 10.4 mg/dL (8.7-10.3); Carbon Dioxide 24.8 mmol/L (21.6-31.8); Chloride 104 mmol/L (96-109); Globulin 2.1 g/dL (1.6-3.3); Glucose 88 mg/dL (70-110); Iron 188 UG/DL (65-175); Potassium 4.3 mmol/L (3.5-5.5); Sodium 141 mmol/L (135-145); Total Iron Binding Capacity 365 UG/DL (228-460); Total Protein 7.1 g/dL (6.2-8.2)
[2023-08-26 15:56] LABS: HCT 48.6 % (39.6-50.0); HGB 16.3 g/dL (13.0-17.0); MCH 29.2 pg (27.0-32.0); MCHC 33.5 g/dL (32.0-37.0); MCV 86.9 FL (80.0-97.0); Mean Platelet Volume 11.7 FL (9.5-12.2); NRBC Per 100 WBC 0 X 10*3/uL (0.00-0.01); Platelet Count 242 X 10*3/uL (140-440); RBC 5.59 X 10*6/uL (4.40-5.60); RDW 12.8 % (11.5-14.5); WBC 6.25 X 10*3/uL (4.50-10.00)
[2023-08-27 12:08] LABS: C-ANCA <1:20 Titer (<1:20)
== END | disposition home or self-care (01) ==
LOC: LABWHC1 10:53
PROVIDERS: ATTEND Internal Medicine
DX: E55.9 Vitamin D deficiency, unspecified (principal); D64.9 Anemia, unspecified; N39.0 Urinary tract infection, site not specified; R80.9 Proteinuria, unspecified
CPT/HCPCS: 36415; 80053; 81001; 82306; 82570; 82728; 83516; 83540; 83550; 84156; 85027; 86255

== ENCOUNTER 2024-11-04 17:45 | Emergency (ER) | payer BC ==
[2024-11-04 17:53] VITALS: RESP 16
[2024-11-04 18:17] LABS: Bilirubin,Urine Negative (Negative); Blood,Urine Negative (Negative); Color,Urine Yellow; Glucose,Urine (UA) Negative (Negative); Ketones,Urine Negative (Negative); Leukocyte Esterase,Urine Negative (Negative); Nitrite,Urine Negative (Negative); PH, Urine 7.5 (5.0-8.0); Protein,Urine Trace (Negative); Specific Gravity,Urine 1.026 (1.001-1.035); Urobilinogen,Urine 8.0 mg/dL (<2.0)
--- NOTE | 2024-11-04 18:20 | ED ---
Male Urogenital HPI - General Chief complaint: Urogenital Stated complaint: urogenital Time Seen by Provider: 11/04/24 18:02 Source: patient, RN notes reviewed Mode of arrival: ambulatory Limitations: no limitations - History of Present Illness MD Complaint: testicle pain Onset/Timin -: days(s) Location: right testicle Severity scale (1-10): 7 Quality: sharp, stabbing Consistency: constant Improves with: rest Worsens with: palpation, movement Reports: denies other symptoms - Related Data Home Medications Medication Instructions Recorded Confirmed Losartan Potassium [Cozaar] 25 mg PO HS 11/01/20 11/01/20 Previous Rx's Medication Instructions Recorded Meclizine [Antivert] 25 mg PO TID PRN #15 tab 11/01/20 HYDROcodone/APAP 5-325MG [[place] 5] 1 each PO Q6HR PRN #12 tab 11/10/21 Benzonatate [Tessalon Perles] 200 mg PO TID PRN #30 capsule 03/12/22 methylPREDNISolone Dose Pack 4 mg PO DIRECTED #21 tab 03/12/22 [Medrol Dose Pack] Allergies Allergy/AdvReac Type Severity Reaction Status Date / Time Penicillins Allergy Unknown Verified 03/12/22 00:10 Review of Systems ROS Statement: Those systems with pertinent positive or pertinent negative responses have been documented in the HPI. ROS Other: All systems not noted in ROS Statement are negative. Past Medical History Past Medical History: Renal Disease Additional Past Medical History / Comment(s): proteinuria, vertigo, pectus excavatum History of Any Multi-Drug Resistant Organisms: None Reported Past Surgical History: Adenoidectomy, Ear Surgery, Tonsillectomy Additional Past Surgical History / Comment(s): tubes in ears, molar extraction Past Anesthesia/Blood Transfusion Reactions: No Reported Reaction Past Psychological History: Depression Smoking Status: Never smoker Past Alcohol Use History: Occasional Past Drug Use History: None Reported - Past Family History Father Family Medical History: Hypertension Mother Family Medical History: No Reported History Sister(s) Family Medical History: No Reported History Brother(s) Family Medical History: No Reported History General Exam Limitations: no limitations General appearance: alert, in no apparent distress Head exam: Present: atraumatic, normocephalic, normal inspection Eye exam: Present: normal appearance, PERRL, EOMI. Absent: scleral icterus, conjunctival injection, periorbital swelling ENT exam: Present: normal exam, mucous membranes moist Neck exam: Present: normal inspection. Absent: tenderness, meningismus, lymphadenopathy Respiratory exam: Present: normal lung sounds bilaterally. Absent: respiratory distress, wheezes, rales, rhonchi, stridor Cardiovascular Exam: Present: regular rate, normal rhythm, normal heart sounds. Absent: systolic murmur, diastolic murmur, rubs, gallop, clicks GI/Abdominal exam: Present: soft, normal bowel sounds. Absent: distended, tenderness, guarding, rebound, rigid exam: Present: testicular tenderness (Positive exquisite right testicular TTP without significant edema, overlying erythema.), circumcision, other (Cremasteric reflex intact bilaterally). Absent: urethral discharge, scrotal swelling, vertical testicular lie Extremities exam: Present: normal inspection, full ROM, normal capillary refill. Absent: tenderness, pedal edema, joint swelling, calf tenderness Back exam: Present: normal inspection Neurological exam: Present: alert, oriented X3, CN II-XII intact Psychiatric exam: Present: normal affect, normal mood Skin exam: Present: warm, dry, intact, normal color. Absent: rash Course Vital Signs 11/04/24 17:50 Temperature 97.7 F Pulse Rate 66 Respiratory 16 Rate Blood Pressure 143/88 O2 Sat by Pulse 99 Oximetry Medical Decision Making - Medical Decision Making Was pt. sent in by a medical professional or institution ([facility], PHYSICAL EDUCATION PROFESSOR, urgent care, hospital, or group home...) When possible be specific @ -[No] Did you speak to anyone other than the patient for history (EMS, parent, family, police, friend...)? What history was obtained from this source @ -[No] Did you review nursing and triage notes (agree or disagree)? Why? @ -[I reviewed and agree with nursing and triage notes] Were old charts reviewed (outside hosp., previous admission, EMS record, old EKG, old radiological studies, urgent care reports/EKG's, group home records)? Report findings @ -[No old charts were reviewed] Differential Diagnosis (chest pain, altered mental status, abdominal pain women, abdominal pain men, vaginal bleeding, weakness, fever, dyspnea, syncope, headache, dizziness, GI bleed, back pain, seizure, CVA, palpatations, mental health, musculoskeletal)? @ -Differential Abdominal Pain Men: Appendicitis, cholecystitis, diverticulosis, ischemic bowel, pancreatitis, hepatitis, UTI, gastroenteritis, AAA, incarcerated hernia, bowel obstruction, constipation, inflammatory bowel, hepatitis, peptic ulcer disease, splenic infarction, perforated viscus, testicular torsion, this is not meant to be an all-inclusive list EKG interpreted by me (3pts min.). @ -Not done X-rays interpreted by me (1pt min.). @ -[None done] CT interpreted by me (1pt min.). @ -[None done] U/S interpreted by me (1pt. min.). @ -[None done] What testing was considered but not performed or refused? (CT, X-rays, U/S, labs)? Why? @ -[None] What meds were considered but not given or refused? Why? @ -[None] Did you discuss the management of the patient with other professionals (professionals i.e. , PA, PHYSICAL EDUCATION PROFESSOR, lab, RT, psych nurse, outreach and education social worker, personal computer network analyst, teacher, geospatial program management officer, machine adjuster leader case trim)? Give summary @ -[No] Was smoking cessation discussed for >3mins.? @ -[No] Was critical care preformed (if so, how long)? @ -[No] Were there social determinants of health that impacted care today? How? (Homelessness, low income, unemployed, alcoholism, drug addiction, transportation, low edu. Level, literacy, decrease access to med. care, group home, rehab)? @ -[No] Was there de-escalation of care discussed even if they declined (Discuss DNR or withdrawal of care, Hospice)? DNR status @ -[No] What co-morbidities impacted this encounter? (DM, HTN, Smoking, COPD, CAD, Cancer, CVA, ARF, Chemo, Hep., AIDS, mental health diagnosis, sleep apnea, morbid obesity)? @ -[None] Was patient admitted / discharged? Hospital course, mention meds given and route, prescriptions, significant lab abnormalities, going to OR and other pertinent info. @ -[hospital course] Undiagnosed new problem with uncertain prognosis? @ -[No] Drug Therapy requiring intensive monitoring for toxicity (Heparin, Nitro, Insulin, Cardizem)? @ -[No] Were any procedures done? @ -[No] Diagnosis/symptom? @ -[default] Acute, or Chronic, or Acute on Chronic? @ -Acute Uncomplicated (without systemic symptoms) or Complicated (systemic symptoms)? @ -Uncomplicated Side effects of treatment? @ -[No] Exacerbation, Progression, or Severe Exacerbation? @ -[No] Poses a threat to life or bodily function? How? (Chest pain, [place], [place], pneumonia, PE, COPD, DKA, ARF, appy, cholecystitis, CVA, Diverticulitis, Homicidal, Suicidal, threat to staff... and all critical care pts) @ -[No] - Lab Data Lab Results 11/04/24 Range/Units 18:06 Urine Color Yellow Urine Appearance Clear (Clear) Urine pH 7.5 (5.0-8.0) Ur Specific [place] 1.026 (1.001-1.035) Urine Protein Trace H (Negative) Urine Glucose (UA) Negative (Negative) Urine Ketones Negative (Negative) Urine Blood Negative (Negative) Urine Nitrite Negative (Negative) Urine Bilirubin Negative (Negative) Urine Urobilinogen 8.0 (<2.0) mg/dL Ur Leukocyte Esterase Negative (Negative) Disposition Clinical Impression: Epididymal cyst Disposition: HOME SELF-CARE Condition: Fair Instructions (If sedation given, give patient instructions): Scrotal Pain (ED) Additional Instructions: Wear supportive underwear/jockstrap. Alternate Tylenol/Motrin every 4 hours for pain. Apply cool compress to the affected area for 10 minutes up to 4 times daily. Follow-up with PCP/urology regarding any ongoing testicular pain. Return to ER if experiencing change in size of the testicle or worsening pain. Is patient prescribed a controlled substance at d/c from ED?: No Referrals: None,Stated [Primary Care Provider] - 1-2 days Felipe Ford MD [STAFF PHYSICIAN] - 1-2 days Walker De La Torre MD [STAFF PHYSICIAN] - 1-2 days Time of Disposition: 18:43
[2024-11-04] MEDS: ACETAMINOPHEN TAB 500 MG TAB PO STA (18:26)
[2024-11-04] MEDS: KETOROLAC 15 MG/ML 1 ML VIAL IM STA (18:27)
--- NOTE | 2024-11-04 18:33 | US ---
EXAMINATION TYPE: US scrotum with doppler. DATE OF EXAM: 11/04/2024 COMPARISON: NONE CLINICAL INDICATION: Male, 24 years old with history of Testicular pain; patient states right testicu lar pain all day. tender to palpate TECHNIQUE: Grayscale, color Doppler and spectral Doppler imaging of the scrotum. FINDINGS: EXAM MEASUREMENTS: TESTICLES: Right Testicle: 5.2 x 2.4 x 4.5 cm Left Testicle: 4.9 x 3.2 x 4.1 cm EPIDIDYMIS HEAD: Right Epididymis: 0.7 x 0.8 x 1.9 cm Left Epididymis: 1.2 x 0.9 x 1.5 cm Doppler performed to assess for testicular vascularity; good bilateral color flow and spectral wavefo tani are seen. There is no evidence of testicular torsion. Presence of hydroceles: No Presence of varicoceles: no Small right epididymal head cyst. IMPRESSION: No evidence for acute process. No evidence for intratesticular mass. Appropriate arterial and venous spectral waveforms to the testes. No evidence to suggest testicular t orsion. [facility], , 11/04/2024 6:31 PM
[2024-11-04] MEDS: ACET/COD 300 MG/30 MG STARTER PACK TAB BTL PO STA (18:58)
[2024-11-04 19:16] VITALS: BP 139/86; PULSE 67; TEMP 97.9
[2024-11-05 12:36] LABS: C. trachomatis,PCR Negative (Negative)
[2024-11-05 12:39] LABS: N. gonorrhoeae,PCR Negative (Negative)
== END 2024-11-04 19:55 | disposition home or self-care (01) ==
LOC: EC 17:45
DX: N50.3 Cyst of epididymis (principal); Z88.0 Allergy status to penicillin
CPT/HCPCS: 81003; 87491; 87591; 93975; 76870; 99284; 96372; J1885